=== PATIENT | female | born 1965 | race Caucasian/White ===

== ENCOUNTER → 2016-09-21 | Outpatient (CLI) | payer OTHER ==
[~2016-09-21] MED LIST: ACETAMINOPHEN PO; ALDACTONE100 MG PO; ALDACTONE25 MG PO; AMITRYPTYLINE PO; ANIMAL SHAPES1 EAC2 PO; ATENOLOL PO; ATENOLOL-CHLOR1 EACH; AUGMENTIN875 M1 PO; CELEXA PO; CELEXA20 M1 PO; CIPRO PO; COLACE PO; DESYREL100 MG PO; EFFEXOR PO; EFFEXOR-XR75 MG PO; EFFEXOR50 MG PO; EFFEXOR75 M3 PO; FLAGYL250 M1 PO; FLEXERIL10 MG PO; FOLIC ACID1 MG PO; GABAPENTIN400 M2 PO; GUAIFENESIN600 M1; HCTZ PO; HYDROCHLOROTHIA25 MG PO; HYDROCODON-ACE1 EAC7; IBUPROFEN800 MG PO; K-DUR20 ME1 PO; K-DUR20 ME2 PO; KEFLEX500 MG PO; LACTULOSE10 GM/15 M PO; LACTULOSE20 GM/30 M PO; LASIX PO; LASIX20 MG PO; LIBRIUM PO; LIBRIUM25 M1 PO; LISINOPRIL PO; LISINOPRIL20 MG PO; MULTI VITAMIN1 EACH PO; NAPROSYN500 MG PO; NEURONTIN PO; ONE TABLET DAIL1 TA2 PO; PANTOPRAZOLE SO40 MG PO; PATIENT'S PHARMACY; PAXIL PO; PHENERGAN25 M1 PO; PROTONIX PO; PROZAC PO; QUETIAPINE FUM100 MG PO; SEROQUEL PO; SEROQUEL300 MG PO; SEROQUEL50 MG PO; SPIRONOLACTONE50 MG PO; THERA-M CAPLET1 EAC1 PO; THIAMINE HCL100 M1 PO; THIAMINE HCL100 M2 PO; THIAMINE HCL100 MG PO; TRAMADOL HCL50 M1 PO; TRAZODONE HCL100 MG PO; TYLOX 5/500 CAP1 CAP PO; ULTRAM PO; VIGAMOX3 M2 OP; ZESTRIL40 MG PO; ZITHROMAX PO; ZOFRAN PO; ZOFRAN8 MG PO; ZOLOFT PO
--- NOTE | ~2016-09-21 | XA170 ---
[facility] A Service of [facility] & [facility] RADIOLOGY TEXT RESULTS PATIENT: TEO WEN LOCATION: [facility] : [birth year] UNIT #: [id number] AGE: [address]: MARY ALBERTS SEX: F ORDER DR: [id number] [facility] [address] [place], [place] [address] [id number] O MR#: [id number] Acc #: [id number] NAME: TEO WEN : 1965 SEX: F STUDY DATE/TIME: 09/21/2016 11:41 UNIT: [facility] ROOM: STUDY DESCRIPTION: XA Paracentesis W Image Attending Physician: Mary Alberts Ordering Physician: Physician Non-Staff Primary Care Physician: Generic Doctor Not In System MEDICAL IMAGING REPORT This report is preliminary unless electronic signature is present EXAM Ultrasound-guided paracentesis, 09/21/2016 HISTORY Recurrent ascites. PROCEDURE Informed consent was obtained and a skin site was selected with ultrasound guidance and marked and after sterile preparation and draping with local anesthesia, paracentesis was performed with the Yeuh needle catheter and 3 liters of fluid removed. There were no complications. IMPRESSION Successful ultrasound-guided right lower quadrant paracentesis with removal of 3 L of fluid without complication. Dictated by... Farzad Rees M.D. THIS IS AN ELECTRONICALLY VERIFIED REPORT Farzad Rees M.D. at 09/22/2016 11:48 AM PATRICIA/mendez TD: 09/22/2016 05:46 JOB #: [id number] MEDICAL IMAGING REPORT COPY
[2016-09-21 11:05] LABS: HEMATOCRIT 34.6 % (35.0-45.0); HEMOGLOBIN 11.5 gm/dL (12.0-16.0); MEAN CELL VOLUME 96.7 FL (83-96); MEAN CORPUSCULAR HEMOGLOBIN 32.1 PG (28-34); MEAN CORPUSCULAR HGB CONC 33.2 g/dL (30-36); MEAN PLATELET VOLUME 9.5 FL (6.5-11.5); RED BLOOD COUNT 3.58 X10e (3.90-5.30); RED CELL DISTRIBUTION WIDTH 16.9 % (11.0-15.5); WHITE BLOOD COUNT 3.3 X10e3 (4.0-10.5)
[2016-09-21 11:24] LABS: INR 1.3; PARTIAL THROMBOPLASTIN TIME 29.9 SECONDS (23.5-31.3); PROTHROMBIN TIME (PATIENT) 13.9 SECONDS (9.6-11.5)
== END | disposition home or self-care (01) ==
LOC: CIVR 10:24
PROVIDERS: Registered Nurse Critical Care Medicine
PROC: 0W9G3ZX Drainage of Peritoneal Cavity, Percutaneous Approach, Diagnostic (ICD-10-PCS; principal; 2016-09-21)
DX: K70.31 Alcoholic cirrhosis of liver with ascites (principal); F41.9 Anxiety disorder, unspecified; D50.9 Iron deficiency anemia, unspecified; T14.91 Suicide attempt; E87.6 Hypokalemia; Z88.1 Allergy status to other antibiotic agents
CPT/HCPCS: 36415; 85027; 85610; 85730

== ENCOUNTER 2016-12-07 15:48 | Emergency (ER) | payer OTHER ==
[~2016-12-07 15:48] MED LIST changes: -EFFEXOR PO; -EFFEXOR75 M3 PO; -LACTULOSE10 GM/15 M PO; -LACTULOSE20 GM/30 M PO; -PATIENT'S PHARMACY; -QUETIAPINE FUM100 MG PO; -SPIRONOLACTONE50 MG PO; -THERA-M CAPLET1 EAC1 PO; -ZOFRAN PO; -ZOFRAN8 MG PO; -ZOLOFT PO
[2016-12-07 19:01] LABS: BASOPHIL% 0.9 % (0-2.5); EOSINOPHIL# 0.1 X10e3 (0-0.7); EOSINOPHIL% 2.1 % (0.0-7.0); HEMATOCRIT 34.4 % (35.0-45.0); HEMOGLOBIN 11.6 gm/dL (12.0-16.0); LYMPHOCYTE# 0.9 X10e3 (1.0-3.5); LYMPHOCYTE% 31.2 % (17.0-45.0); MEAN CELL VOLUME 97.3 FL (83-96); MEAN CORPUSCULAR HEMOGLOBIN 32.9 PG (28-34); MEAN CORPUSCULAR HGB CONC 33.8 g/dL (30-36); MEAN PLATELET VOLUME 8.9 FL (6.5-11.5); MONOCYTE# 0.3 X10e3 (0-1.0); MONOCYTE% 10.3 % (3.0-12.0); NEUTROPHIL# 1.6 X10e3 (1.5-7.1); NEUTROPHIL% 55.5 % (40-75); PLATELET COUNT 69 X10e3 (140-420); RED BLOOD COUNT 3.54 X10e (3.90-5.30); RED CELL DISTRIBUTION WIDTH 15.9 % (11.0-15.5); WHITE BLOOD COUNT 2.9 X10e3 (4.0-10.5)
[2016-12-07 19:16] LABS: DIFF IND YES
[2016-12-07 19:28] LABS: ALBUMIN SERUM 3.1 g/dL (3.5-5.0); BILIRUBIN, DIRECT 0.6 mg/dL (0.0-0.2); BILIRUBIN,INDIRECT 1.3 mg/dL (0.0-0.9); BILIRUBIN,TOTAL 1.9 mg/dL (0.2-2.0); CALCIUM SERUM 8.7 mg/dL (8.4-10.2); CREATININE SERUM 0.5 mg/dL (0.6-1.4); GLOM FILT RATE Estimated 113.7 mL/min (>60); POTASSIUM 3.5 mmol/L (3.5-5.1); PROTEIN TOTAL SERUM 7.1 g/dL (6.0-8.3)
[2016-12-07 19:43] LABS: ANISOCYTOSIS MOD; PLATELET ESTIMATE DECREASED (NORMAL); POIKILOCYTOSIS SL
[2016-12-07 19:56] LABS: URINE SOURCE CLEAN CATCH
[2016-12-07 20:04] LABS: URINE APPEARANCE CLOUDY; URINE BLOOD NEG (NEG); URINE COLOR ORANGE; URINE GLUCOSE NEG (NEG); URINE KETONE TRACE (NEG); URINE LEUKOCYTE ESTERASE 1+ (NEG); URINE NITRATE POS (NEG); URINE PROTEIN TRACE (NEG); URINE SPECIFIC GRAVITY 1.033 (1.003-1.035)
[2016-12-07 20:07] LABS: CULTURE INDICATED? YES; URINE BACTERIA AUWI 1+ (NEGATIVE); URINE SQUAMOUS EPITHELIAL CELL FEW /[HPF]
[2016-12-07 20:13] LABS: URINE BILIRUBIN POS (NEG)
[2016-12-07 20:15] LABS: URINE ICTOTEST POS (NEG)
== END 2016-12-07 22:37 | disposition home or self-care (01) ==
LOC: CED 15:48
PROVIDERS: Emergency Medicine
DX: R10.84 Generalized abdominal pain (principal); R11.2 Nausea with vomiting, unspecified; D61.818 Other pancytopenia; K72.90 Hepatic failure, unspecified without coma; F41.9 Anxiety disorder, unspecified; F32.9 Major depressive disorder, single episode, unspecified; I10 Essential (primary) hypertension; Z88.2 Allergy status to sulfonamides
CPT/HCPCS: 36415; 80048; 80076; 81003; 83690; 84703; 85025; 87086; 96374; 96375; 99284; G0480; J2270; J2405

== ENCOUNTER → 2016-12-07 | Outpatient (CLI) | payer OTHER ==
--- NOTE | ~2016-12-07 | XA170 ---
[facility] A Service of [facility] RADIOLOGY TEXT RESULTS PATIENT: TEO WEN LOCATION: [facility] : 69 UNIT #: [id number] AGE: [address]: PAUL PANDA APRN SEX: F ORDER DR: [id number] [address] [address] [id number] O MR#: [id number] Acc #: [id number] NAME: TEO WEN : 1965 SEX: F STUDY DATE/TIME: 12/07/2016 14:31 UNIT: [facility] ROOM: STUDY DESCRIPTION: XA Paracentesis W Image Attending Physician: Paul Panda Referring Physician: Paul Panda Ordering Physician: Physician Non-Staff Primary Care Physician: Generic Doctor Not In System MEDICAL IMAGING REPORT This report is preliminary unless electronic signature is present EXAM Ultrasound-guided paracentesis INDICATIONS Ascites. Risks, benefits and alternatives of the procedure were discussed with the patient and informed consent was obtained. In the procedure room, a time-out was performed confirming correct patient and procedure. All elements of maximum sterile-barrier technique utilized according to guidelines appropriate for the procedure. TECHNIQUE/FINDINGS Ultrasound of the right lower quadrant was performed. The overlying skin was prepped and draped in the usual sterile fashion and 1% lidocaine utilized to anesthetize the skin and underlying subcutaneous tissues. Next, under ultrasound guidance, a 5-Slovenian Yueh catheter was inserted into the right lower quadrant and 6200 mL of fluid was removed. Needle was removed and a sterile dressing was applied. No immediate complications. IMPRESSION Successful ultrasound-guided paracentesis. Dictated by... Nahum Marino M.D. THIS IS AN ELECTRONICALLY VERIFIED REPORT Nahum Marino M.D. at 12/08/2016 7:46 AM PAPI/audelia TD: 12/07/2016 22:30 [facility] A Service of [facility] RADIOLOGY TEXT RESULTS PATIENT: TEO WEN LOCATION: [facility] #: [id number] : [birth year] UNIT #: [id number] AGE: [address]: PAUL PANDA APRN SEX: F ORDER DR: JOB #: [id number] MEDICAL IMAGING REPORT Page 1 of 1 COPY
[2016-12-07 14:06] LABS: HEMOGLOBIN 11.7 gm/dL (12.0-16.0); MEAN CELL VOLUME 96.7 FL (83-96); MEAN CORPUSCULAR HEMOGLOBIN 32.4 PG (28-34); MEAN CORPUSCULAR HGB CONC 33.5 g/dL (30-36); MEAN PLATELET VOLUME 8.8 FL (6.5-11.5); RED BLOOD COUNT 3.62 X10e (3.90-5.30); RED CELL DISTRIBUTION WIDTH 15.6 % (11.0-15.5); WHITE BLOOD COUNT 2.7 X10e3 (4.0-10.5)
[2016-12-07 14:43] LABS: INR 1.4; PARTIAL THROMBOPLASTIN TIME 31.3 SECONDS (23.5-31.3); PROTHROMBIN TIME (PATIENT) 14.7 SECONDS (9.6-11.5)
== END | disposition home or self-care (01) ==
LOC: CIVR 13:17
PROVIDERS: Nurse Practitioner Family
PROC: 0W9G3ZX Drainage of Peritoneal Cavity, Percutaneous Approach, Diagnostic (ICD-10-PCS; principal; 2016-12-07)
DX: K70.31 Alcoholic cirrhosis of liver with ascites (principal); F41.9 Anxiety disorder, unspecified; D50.9 Iron deficiency anemia, unspecified; T14.91 Suicide attempt; E87.6 Hypokalemia; Z88.1 Allergy status to other antibiotic agents
CPT/HCPCS: 36415; 85027; 85610; 85730

== ENCOUNTER → 2017-01-28 | Outpatient (CLI) | payer OTHER ==
[~2017-01-28] MED LIST changes: +EFFEXOR PO; +EFFEXOR75 M3 PO; +LACTULOSE10 GM/15 M PO; +LACTULOSE20 GM/30 M PO; +PATIENT'S PHARMACY; +QUETIAPINE FUM100 MG PO; +SPIRONOLACTONE50 MG PO; +THERA-M CAPLET1 EAC1 PO; +ZOFRAN PO; +ZOFRAN8 MG PO; +ZOLOFT PO
--- NOTE | ~2017-01-28 | XA170 ---
[facility] A Service of [facility] & [facility] RADIOLOGY TEXT RESULTS PATIENT: TEO WEN LOCATION: [facility] : [birth year] UNIT #: [id number] AGE: [address]: FRANCHESCA KEATING SEX: F ORDER DR: [id number] [facility] [address] [place], [place] [address] [id number] O MR#: [id number] Acc #: [id number] NAME: TEO WEN : 1965 SEX: F STUDY DATE/TIME: 01/28/2017 14:38 UNIT: [facility] ROOM: STUDY DESCRIPTION: XA Paracentesis W Image Attending Physician: Franchesca Keating Referring Physician: Franchesca Keating Ordering Physician: Sanna Not Listed Primary Care Physician: No Primary Care Physician MEDICAL IMAGING REPORT This report is preliminary unless electronic signature is present EXAM Ultrasound-guided paracentesis. HISTORY Recurrent ascites. PROCEDURE Informed consent was obtained. The skin site was selected with ultrasound guidance, sterilely prepped and draped and locally anesthetized, and a [employer] needle catheter was used for paracentesis. 15.5 liters of fluid removed. There were no complications, and the patient tolerated the procedure well. IMPRESSION Successful ultrasound-guided paracentesis with removal of 15.5 liters of fluid without complications. Dictated by... Farzad Rees M.D. THIS IS AN ELECTRONICALLY VERIFIED REPORT Farzad Rees M.D. at 02/02/2017 10:05 AM PATRICIA/lincoln TD: 01/28/2017 19:10 JOB #: [id number] MEDICAL IMAGING REPORT Page 1 of 1 COPY
[2017-01-28 14:14] LABS: HEMATOCRIT 37.3 % (35.0-45.0); HEMOGLOBIN 12.6 gm/dL (12.0-16.0); MEAN CORPUSCULAR HEMOGLOBIN 33.1 PG (28-34); MEAN CORPUSCULAR HGB CONC 33.7 g/dL (30-36); MEAN PLATELET VOLUME 8.4 FL (6.5-11.5); RED BLOOD COUNT 3.81 X10e (3.90-5.30); RED CELL DISTRIBUTION WIDTH 15.7 % (11.0-15.5); WHITE BLOOD COUNT 5.7 X10e3 (4.0-10.5)
[2017-01-28 14:30] LABS: INR 1.4; PARTIAL THROMBOPLASTIN TIME 30.8 SECONDS (23.5-31.3)
== END | disposition home or self-care (01) ==
LOC: CIVR 13:00
PROVIDERS: Nurse Practitioner Family
DX: K70.31 Alcoholic cirrhosis of liver with ascites (principal); F41.9 Anxiety disorder, unspecified; D50.9 Iron deficiency anemia, unspecified; E87.6 Hypokalemia; F33.1 Major depressive disorder, recurrent, moderate; Z91.5 Personal history of self-harm; Z88.1 Allergy status to other antibiotic agents
CPT/HCPCS: 85027; 85610; 85730

== ENCOUNTER 2017-02-13 14:10 | Inpatient (IN) | payer OTHER ==
[~2017-02-13] VITALS: Ht 167.6 cm; Wt 95.5 kg
--- NOTE | ~2017-02-13 | XA170 ---
[facility] A Service of [facility] RADIOLOGY TEXT RESULTS PATIENT: TEO WEN LOCATION: A : 69 UNIT #: [id number] AGE: [address]: Velia Bailey MD SEX: F ORDER DR: [id number] [place] [id number] [facility]. [place], [place] [address] [id number] I MR#: [id number] Acc #: [id number] NAME: TEO WEN : 1965 SEX: F STUDY DATE/TIME: 02/15/2017 8:35 UNIT: A ROOM: [facility] STUDY DESCRIPTION: XA Paracentesis W Image Attending Physician: Velia Bailey M.D. Ordering Physician: Drew Villalobos M.D. Primary Care Physician: No Primary Care Physician MEDICAL IMAGING REPORT This report is preliminary unless electronic signature is present EXAM Ultrasound-guided paracentesis. INDICATIONS Recurrent ascites. TECHNIQUE Risks, benefits, and alternatives to the procedure were discussed with the patient, and informed consent was obtained. In the procedure room, a time-out was performed confirming correct patient and procedure. All elements of maximum sterile barrier technique were utilized, according to guidelines appropriate for the procedure. Ultrasound of the right side of the abdomen was performed, demonstrating a large amount of ascites. The overlying skin was prepped and draped in the usual sterile fashion. 1% lidocaine was utilized to anesthetize the skin and underlying subcutaneous tissues. Next, under ultrasound guidance, a 5-Gambian Yueh catheter was inserted into the peritoneal space of the right lower quadrant, and 11,600 mL of fluid was removed. Sample was sent to the lab. The needle was removed and a sterile dressing was applied. No immediate complications. IMPRESSION Technically successful ultrasound-guided paracentesis. Dictated by... Nahum Marino M.D. THIS IS AN ELECTRONICALLY VERIFIED REPORT Nahum Marino M.D. at 02/16/2017 10:28 AM PAPI/lincoln [facility] A Service [facility] RADIOLOGY TEXT RESULTS PATIENT: TEO WEN [id number] : [birth year] UNIT #: [id number] AGE: [address]: Velia Bailey MD SEX: F ORDER DR: TD: 02/15/2017 18:38 JOB #: [id number] MEDICAL IMAGING REPORT Page 1 of 1 COPY
--- NOTE | ~2017-02-13 | US8 ---
[facility] A Service of [facility] & [facility] RADIOLOGY TEXT RESULTS PATIENT: TEO WEN LOCATION: [facility] 231-01 : [birth year] UNIT #: [id number] AGE: [address]: Velia Bailey MD SEX: F ORDER DR: [id number] [facility] [address] [place], [place] [address] [id number] I MR#: [id number] Acc #: [id number] NAME: TEO WEN : 1965 SEX: F STUDY DATE/TIME: 02/16/2017 7:57 UNIT: A ROOM: [facility] STUDY DESCRIPTION: US Abdominal Wall/Quadrant Attending Physician: Velia Bailey M.D. Ordering Physician: Velia Bailey M.D. Primary Care Physician: Primary Care Physician No MEDICAL IMAGING REPORT This report is preliminary unless electronic signature is present EXAM Abdomen wall quadrant ultrasound, 02/16/2017 HISTORY Distended abdomen and abdominal pain for 2 weeks. Hepatic cirrhosis. Evaluate for ascites after paracentesis yesterday. FINDINGS Ultrasound of the abdomen reveals a moderate to large amount of ascites within the peritoneal cavity. IMPRESSION Moderate to large amount of ascites within the peritoneal cavity. Dictated by... Sy Panda M.D. THIS IS AN ELECTRONICALLY VERIFIED REPORT Sy Panda M.D. at 02/17/2017 7:32 AM DIONTE/shamika TD: 02/16/2017 11:31 JOB #: [id number] MEDICAL IMAGING REPORT Page 1 of 1 COPY
--- NOTE | ~2017-02-13 | CO ---
Unit #: [id number] #: [id number] Patient: TEO MORA [id number] [address] [place], [place] [address] [id number] I MR#: [id number] NAME: TEO MORA ROOM: 231 Age: 51 Sex: F Admission Date: 02/13/2017 : 1965 Attending Physician: Velia Bailey M.D. Primary Care Physician: No Primary Care Physician Consultation Date: 02/15/2017 CONSULTATION REPORT REASON FOR CONSULTATION Large dense ascites. HISTORY Ms. Mora is a 51-year-old white female patient with a longstanding history of alcoholic cirrhosis, portal hypertension, ascites with continued alcohol abuse. Unfortunately she continues to abuse alcohol. She ended up going with massive ascites and generalized anasarca. There is no history of lower GI bleed, nor any history suggestive of mental confusion or hepatic encephalopathy. Unfortunately she has very poor social circumstances. tells me that she was drinking and she has been drinking about a pint of vodka every day before being brought to the hospital. PAST MEDICAL HISTORY Significant for cirrhosis and alcohol abuse, along with ascites, pancytopenia, depression, anxiety. Multiple admissions in the past because of history of DTs from alcoholic withdrawal and cellulitis. Previous surgeries include a tubal ligation and oophorectomy. Patient had a colonoscopy on 03/2015 and did not have any polyps or cancer at that time. SOCIAL HISTORY She lives with her and drinks vodka every day and does not smoke or use recreational drugs. FAMILY HISTORY Father having cirrhosis from alcohol. HOME MEDICATIONS These include spironolactone 50 mg p.o. daily; Lasix 20 mg p.o. daily; quetiapine 1 mg h.s.; Zofran 8 mg q.8 hours p.r.n.; lactulose 20 g p.o. 4 times a day; as well as Effexor XR 75 mg p.o. daily. ALLERGIES Patient is allergic to sulfonamides. REVIEW OF SYSTEMS A detailed review of organ system does not reveal any recent weight loss. No history of fevers, chills or rigors. No headaches, seizures, chest pain or syncope. No history of cough or expectoration, or hemoptysis. No history of dysuria, hematuria or pyuria. No history of focal seizures or extremity weakness. No history of upper GI bleed. PHYSICAL EXAMINATION Unit #: [id number] #: [id number] Patient: TEO MORA GENERAL: She is awake, alert and oriented, and has massive ascites, which is quite evident. VITAL SIGNS: Her temperature is 97.8, pulse 72 per minute and regular, respiratory rate is 18, and blood pressure is 130/84. She weighs 210 pounds. Her baseline weight in the past has been (1) in the past. HEENT: She has mild pallor, there being no icterus, lymphadenopathy, grade 4 pitting peripheral edema. CARDIOVASCULAR: Normal heart sounds. No murmurs on auscultation. LUNGS: Reveals normal breath sounds with diminished air entry at the lung bases. ABDOMEN: Abdominal palpation. Has been eating less because of massively enlarged abdomen with intense ascites. Any kind of organomegaly is impossible to feel. Patient also has a ventral hernia from ascites. DIAGNOSTIC STUDIES LABORATORY EVALUATION: Coagulopathy with INR of 1.4 and pancytopenia with platelet count of 62. White count is 2.2 thousand, and MCV is 103. All consistent with alcohol abuse. Serum chemistry shows normal BUN and creatinine and electrolytes; however, patient's albumin is 2.7. AST, ALT and alk phos are 59, 23, and 97 respectively. CLINICAL IMPRESSION Patient with alcohol cirrhosis, large dense ascites, severe pancytopenia, coagulopathy, hypoalbuminemia, and continued alcohol abuse. The single most important determinate of her outcome is total sobriety, which is a tall order. In the meantime suggest we treat with a dose of Lasix 40 mg daily, Aldactone 200 mg p.o. daily. Also patient must stick to 2 g sodium high protein diet. Unfortunately she has been continuing to use a lot of salt home. Will also consider repeat paracentesis and Dr. Bailey has already ordered that. Thank you very much for asking me to see Ms. Mora. I appreciate the consult. Dictated by... Andres Phillips TD: 02/17/2017 09:20 JOB #: [id number] CONSULTATION REPORT Page 1 of 1 X Drew Villalobos MD CONSULTATION REPORT
--- NOTE | ~2017-02-13 | XA170 ---
[facility] A Service of [facility] & [facility] RADIOLOGY TEXT RESULTS PATIENT: TEO WEN LOCATION: [facility]- : [birth year] UNIT #: [id number] AGE: [address]: Velia Bailey MD SEX: F ORDER DR: [id number] [facility] [address] [place], [place] [address] [id number] I MR#: [id number] Acc #: [id number] NAME: TEO WEN : 1965 SEX: F STUDY DATE/TIME: 02/16/2017 13:09 UNIT: C2A ROOM: [facility] STUDY DESCRIPTION: XA Paracentesis W Image Attending Physician: Velia Bailey M.D. Ordering Physician: Velia Bailey M.D. Primary Care Physician: Primary Care Physician No MEDICAL IMAGING REPORT This report is preliminary unless electronic signature is present EXAM Ultrasound-guided paracentesis INDICATION Ascites and cirrhosis. PROCEDURE There risks, benefits, and alternatives to the procedure were explained to the patient, and signed, informed consent was obtained. The patient was placed supine on her stretcher. Preliminary ultrasound of the abdomen was performed which demonstrated a large volume of ascites. This image was permanently saved. Overlying skin was marked. Patient was prepped and draped in the usual sterile fashion. Time-out was performed as protocol. Skin and subcutaneous tissues were anesthetized with buffered lidocaine. The [employer] catheter was advanced into the fluid with aspiration of serous material. Catheter was hooked to suction tubing. There was evacuation of a total of 7.3 L of serous material. Catheter was then removed and manual pressure was applied until hemostasis was obtained. IMPRESSION Technically successful ultrasound-guided paracentesis with evacuation of 7.3 L of serous material. Ultrasound was used during the procedure and permanent images were saved. Dictated by... Evelia Cisneros M.D. THIS IS AN ELECTRONICALLY VERIFIED REPORT Evelia Cisneros M.D. at 02/17/2017 4:48 PM JED/shamika TD: 02/17/2017 08:58 JOB #: [id number] [facility] A Service of [facility] & [facility] RADIOLOGY TEXT RESULTS PATIENT: TEO WEN [facility] [id number] : [birth year] UNIT #: [id number] AGE: [address]: Velia Bailey MD SEX: F ORDER DR: MEDICAL IMAGING REPORT Page 1 of 1 COPY
--- NOTE | ~2017-02-13 | HP ---
Unit #: [id number] #: [id number] Patient: TEO WEN [id number] [address] [address] [id number] MR#: [id number] NAME: TEO WEN ROOM: Age: 51 Sex: F Admission Date: 02/13/2017 : 1965 Attending Physician: Ceasar Mac M.D. HISTORY AND PHYSICAL CHIEF COMPLAINT Abdominal pain. HISTORY OF PRESENT ILLNESS The patient is a 51-year-old female with a past medical history of cirrhosis secondary to alcohol abuse with recurrent ascites, thrombocytopenia, and continued alcohol abuse, who presented to the emergency department for evaluation of the above. The patient states that she has had a three to four-day history of increasing abdominal girth and pain. She has had decreased appetite and associated shortness of breath. She also reports loose stool. Additionally, she has had increasing lower extremity edema. She has been taking her medication as prescribed. She apparently had stopped taking lactulose for a couple of days but restarted it yesterday. In the emergency department, CT of the abdomen and pelvis was done and showed massive ascites. She was given a gram of Rocephin in the emergency department. She is being admitted to [facility] for evaluation and further treatment. PAST MEDICAL HISTORY 1. Admission to [facility] August 15 through August 24, 2016, for cirrhosis. 2. Cirrhosis secondary to alcohol abuse with recurrent ascites and pancytopenia. 3. Depression and anxiety. PAST SURGICAL HISTORY 1. Tubal ligation. 2. Oophorectomy. 3. Colonoscopy. SOCIAL HISTORY The patient lives with her . She drinks a fifth daily. Her last drink was four days ago and consisted of a pint of alcohol, although her blood alcohol level today is 60. Additionally, the patient has paperwork from [employer] stating that she is a Do Not Resuscitate. The patient and her state that she is a Full Code. She denies tobacco or illicit drug use. FAMILY HISTORY Notable for her dad having cirrhosis. Unit #: [id number] #: [id number] Patient: TEO WEN ALLERGIES Sulfa. HOME MEDICATIONS 1. Spironolactone 50 mg daily. 2. Lasix 20 mg daily. 3. Quetiapine 100 mg at bedtime. 4. Zofran 8 mg q.8 hours p.r.n. 5. Lactulose 20 g 4 times daily. 6. Effexor 75 mg daily. REVIEW OF SYSTEMS A complete review of systems is negative except as indicated in the History of Present Illness. The patient's last paracentesis was January 28, 2017, with removal of 15.5 liters at that time. PHYSICAL EXAMINATION VITAL SIGNS: Temperature is 98.4, pulse 86, respirations 20, blood pressure 123/84, and oxygen saturation is 97% on room air. GENERAL: Patient is a female who is awake, alert, and in no acute distress. HEENT: Head is atraumatic. Mucous membranes are dry. NECK: Supple. Trachea is midline. CARDIOVASCULAR: Regular rate and rhythm. LUNGS: Decreased breath sounds at the bases. Breathing is mildly labored with conversation. ABDOMEN: Markedly distended. She is tender to palpation throughout. Rectal exam was Hemoccult negative per ER documentation. EXTREMITIES: With 1+ pitting edema. NEUROLOGIC: Patient is awake and alert. She is oriented to person, place, and year. She follows commands. PSYCHIATRIC: Mood and affect are normal. Patient is cooperative. SKIN: Skin of examined areas is warm and dry. DIAGNOSTIC STUDIES LABORATORY: BNP is 133. Urinalysis notable for trace leukocyte esterase and trace protein. INR is 1.3. Comprehensive metabolic panel notable for glucose of 155, AST 59, alkaline phosphatase 97, total bilirubin 3.2, and albumin is 3.2. Lipase is 39. Alcohol level is 60. Complete blood count notable for platelets of 90,000. IMAGING: CT of the abdomen and pelvis shows massive ascites with mild mural prominence involving the ascending and transverse colon concerning for possible congestion versus infection. Uncomplicated cholelithiasis. Chest x-ray shows left base atelectasis. ASSESSMENT The patient is a 51-year-old female with: 1. Ascites, recurrent, secondary to #2. 2. Cirrhosis secondary to alcohol abuse with continued alcohol abuse. 3. Thrombocytopenia. The patient's platelet count has been as low as 41 on August 17, 2016. Platelets are 90 today. 4. Alcohol abuse with last drink reportedly four days ago, but blood alcohol level is 60. 5. Depression and anxiety. 6. Uncomplicated cholelithiasis. PLAN Unit #: [id number] #: [id number] Patient: TEO WEN 1. Admit for observation to intermediate level. 2. Advance diet to clear liquids if passes bedside swallow. 3. Consult Interventional Radiology for paracentesis. 4. Albumin for large volume paracentesis. 5. Ascitic fluid studies including cell count and differential, culture and sensitivity. 6. Rocephin 1 gram IV daily pending further workup. 7. Thiamine, multivitamin, and folic acid. 8. CIWA scoring. 9. Check ammonia level. 10. Repeat labs in the morning. 11. Additional workup and consultants based on above. 12. Regarding code status, the patient is a Full Code. 1. Dictated by Kenia Fajardo M.D. AW/stefanie TD: 02/13/2017 21:01 JOB #: [id number] HISTORY AND PHYSICAL Page 1 of 1 X Kenia Fajardo MD X HISTORY AND PHYSICAL
--- NOTE | ~2017-02-13 | DS ---
Unit #: [id number] #: [id number] Patient: TEO WEN [id number] [address] [place], [place] [address] [id number] I MR#: [id number] NAME: TEO WEN ROOM: 231 Age: 51 Sex: F Admission Date: 02/13/2017 : 1965 Discharge Date: 02/17/2017 Attending Physician: Velia Bailey M.D. Primary Care Physician: No Primary Care Physician DISCHARGE SUMMARY REASON FOR ADMISSION Ascites, intractable pain, cirrhosis. The patient is a 51-year-old female, originally admitted secondary to increased abdominal pain and/or discomfort. She was noted to have massive ascites seen on day of admission. She underwent a large volume paracentesis by IR on February 15, 2017, with approximately 12 L removed. Consultation had also been placed by Dr. Villalobos of [facility] in regards to the patient's history of cirrhosis as well as alcohol abuse. He did recommend to increase Lasix to 40 mg p.o. q. a.m. as well as Aldactone from 50 mg to 200 mg p.o. q. h.s. The patient underwent a repeat ultrasound on the morning of February 16, 2017. It did show ascites/as well as increased fluid once again. Patient underwent repeat paracentesis yesterday with approximately 7 L of fluid removed by IR. At this point in time, the patient is stable for discharged home. She is routinely followed by hospice services while at home. Her life expectancy is less than six months. This has been compounded by the fact that she continues to consume alcohol on a daily basis as well as has been noncompliant with her routine medications. I did discuss with patient in consideration of pain management that perhaps inpatient hospice may be something for her to consider. At the present time, she refuses and wishes to go home. She did ask me for pain medications prior to discharge. However, after review and discussion with hospice services, apparently her had been taking some of her medications and patient had been having her medications mismanaged while at home. therefore, no narcotic medications will be given to patient at time of discharge. At this point in time, the patient will be discharged home with the understanding that hospice services will continue to follow at the time of discharge. She likely will require weekly paracentesis which may be set up as an outpatient through either hospice services or through her primary care physician. 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 FINAL DISCHARGE DIAGNOSES 1. Ascites, status post paracentesis x2 this hospital admission, with a total of approximately 20 liters of fluid removed. 2. Cirrhosis, end stage, secondary to alcohol abuse in the past. Unit #: [id number] #: [id number] Patient: TEO WEN 3. Ongoing alcohol abuse with little insight into disease process. 4. Chronic pancytopenia. 5. Depression. 6. Anxiety. 7. Malnutrition secondary to alcohol abuse. Baseline hemoglobin at time of discharge approximately 10-11. Baseline white count at time of discharge approximately 2. Baseline platelets at time of discharge approximately 60. FINAL DISCHARGE MEDICATIONS 1. Lactulose 20 g p.o. q.6 scheduled. 2. Effexor XR 75 mg p.o. q. a.m. 3. Zofran 8 mg p.o. q.8 p.r.n. 4. Seroquel 100 mg p.o. q. h.s. 5. Lasix 40 mg p.o. q. a.m. 6. Multivitamin daily. 7. Aldactone 200 mg p.o. q. h.s. 8. Thiamine 100 mg p.o. daily. DISCHARGE CONDITION Stable. DISCHARGE DISPOSITION Home. Please note - recommendation has been made to patient for inpatient hospice to which she has refused. Chance of readmission for this admission significantly elevated. PROGNOSIS Poor. Dictated by... Velia Bailey M.D. EFRAIN/yudelka TD: 02/17/2017 11:29 JOB #: [id number] DISCHARGE SUMMARY Page 1 of 1 X Velia Bailey MD X DISCHARGE SUMMARY
--- NOTE | ~2017-02-13 | CT2 ---
[facility] A Service of [facility] RADIOLOGY TEXT RESULTS PATIENT: TEO WEN LOCATION: [facility] 549- : 69 UNIT #: [id number] AGE: [address]: Velia Bailey MD SEX: F ORDER DR: [id number] [facility] [address] [place], [place] [address] [id number] I MR#: [id number] Acc #: [id number] NAME: TEO WEN : 1965 SEX: F STUDY DATE/TIME: 02/13/2017 17:10 UNIT: B ROOM: [facility] STUDY DESCRIPTION: CT Abd and Pelv W Cont Attending Physician: Kenia Fajardo M.D. Ordering Physician: Ceasar Mac M.D. Primary Care Physician: Primary Care Physician No MEDICAL IMAGING REPORT This report is preliminary unless electronic signature is present EXAM CT abdomen and pelvis with contrast. HISTORY Right side abdomen pain today. Cirrhosis, hypertension. TECHNIQUE CT abdomen and pelvis performed with 100 mL Isovue-370 intravenously. Patient also received enteric contrast. Comparison 08/15/2016. This CT exam was performed with one or more of the following radiation dose reduction techniques: automatic exposure control, adjustment of mA and/or kV according to patient size, and iterative reconstruction. FINDINGS Dependent atelectasis at the lung bases. Densely calcified granuloma at the right lung base. Inferior heart and pericardium notable for mild cardiac enlargement. There are aortic valvular and coronary arterial calcifications. Cirrhotic morphology of the liver. No clearly suspicious focal hepatic abnormality. Uncomplicated cholelithiasis. Spleen is enlarged measuring approximately 16.8 cm in craniocaudal extent. No change from prior study. Calcified splenic granulomata. Pancreas, left adrenal gland unremarkable. Indeterminate right adrenal nodule measuring about 2.1 cm in diameter, unchanged. Kidneys unremarkable. CT PELVIS: No inguinal adenopathy. The urinary bladder is unremarkable. The uterus and adnexal regions show no acute abnormality. Massive ascites. Greater than on prior examination. Extensive body wall edema most pronounced low abdomen/pelvis and extending into the visualized upper thighs also more pronounced than on prior study. The distal esophagus and stomach notable for presence of esophageal varices. The small bowel is unremarkable. The appendix is not clearly identified. There is no STS. [facility] A Service of [facility] RADIOLOGY TEXT RESULTS PATIENT: TEO WEN LOCATION: [facility] 549-01 : [birth year] UNIT #: [id number] AGE: [address]: Velia Bailey MD SEX: F ORDER DR: compelling evidence of appendicitis. The colon is difficult to assess given the extensive ascites. The colon shows a suggestion of wall thickening in the ascending and proximal transverse colon. This could be a reflection of venous congestion given portal hypertension. Correlate with any clinical concern for infectious or inflammatory colitis. There is no free air. No colonic dilatation. Recanalization of the periumbilical veins. Caput medusae. Esophageal varices. Atherosclerotic arterial calcifications. No aneurysm. Bony structures show no acute abnormality. IMPRESSION 1. Massive ascites. I believe this has increased in the interval from 08/15/2016. In addition there is extensive body wall edema most pronounced in the posterolateral body wall bilaterally and in the inferior anterior abdominal and pelvic body wall extending into the thighs bilaterally. Body wall edema significantly increased in interval from prior study. 2. Cirrhotic morphology of the liver with evidence of portal hypertension including esophageal varices, recanalization of the periumbilical veins, caput medusae, and stable splenomegaly with spleen measuring about 16.8 cm in craniocaudal extent. 3. Mild mural prominence of the ascending and proximal transverse colon. No pathologic dilatation. No indication of focal mass lesion. The appearance is nonspecific and could be a reflection of venous congestion and edema secondary to portal hypertension. Alternatively, ascending colitis of infectious or inflammatory etiology could be considered. Correlate clinically. Remainder of colon unremarkable. Small bowel unremarkable. Appendix not clearly identified. 4. Cirrhotic morphology of liver without suspicious focal abnormality. 5. Uncomplicated cholelithiasis. 6. Atherosclerotic arterial calcifications in the coronary and systemic circulation. No aneurysm. 7. Dependent atelectasis at the bilateral lung bases. Dictated by... Ceasar Amaro M.D. THIS IS AN ELECTRONICALLY VERIFIED REPORT Ceasar Amaro M.D. at 02/14/2017 2:44 PM AUSTYN/mendez TD: 02/14/2017 04:05 JOB #: [id number] MEDICAL IMAGING REPORT Page 1 of 1 COPY
--- NOTE | ~2017-02-13 | CR72 ---
[facility] A Service of [facility] RADIOLOGY TEXT RESULTS PATIENT: TEO WEN LOCATION: [facility] : 69 UNIT #: [id number] AGE: [address]: Kenia Fajardo MD SEX: F ORDER DR: [id number] [facility] [address] [place], [place] [address] [id number] E MR#: [id number] Acc #: [id number] NAME: TEO WEN : 1965 SEX: F STUDY DATE/TIME: 02/13/2017 15:31 UNIT: [facility] [employer] ROOM: STUDY DESCRIPTION: CR Chest Single View Portable Attending Physician: Ceasar Mac M.D. Ordering Physician: Ceasar Mac M.D. Primary Care Physician: No Primary Care Physician MEDICAL IMAGING REPORT This report is preliminary unless electronic signature is present EXAM Frontal chest, 02/13/2017. INDICATIONS 51-year-old female with shortness of air chronically for a week. Hypertension. TECHNIQUE Frontal chest was performed. COMPARISON No comparisons. FINDINGS Cardiac silhouette borderline in size. Lung volumes are low. There was bronchovascular crowding versus mild central vascular congestion. Probable atelectasis in the right lung base. More confluent atelectasis or pneumonia in the left lung base with volume loss on the left and mild elevation of the left hemidiaphragm. There may be a trace amount of left-sided pleural fluid. No pneumothorax. There is old healed granulomatous disease. Follow up to clearing after appropriate therapy is recommended. IMPRESSION 1. Low lung volumes with bronchovascular crowding versus mild central vascular congestion. 2. Left basilar atelectasis or pneumonia. Probable trace to small effusion. Follow up to clearing recommended. 3. We have no comparisons for this patient in our system. STAT * RESULT [facility] A Service of [facility] RADIOLOGY TEXT RESULTS PATIENT: TEO WEN LOCATION: [facility] [id number] : [birth year] UNIT #: [id number] AGE: [address]: Kenia Fajardo MD SEX: F ORDER DR: Dictated by... Pavel Almeida M.D. THIS IS AN ELECTRONICALLY VERIFIED REPORT Pavel Almeida M.D. at 02/13/2017 10:07 PM ZONIA/lori TD: 02/13/2017 15:45 JOB #: [id number] MEDICAL IMAGING REPORT Page 1 of 1 COPY
[~2017-02-13 14:10] MED LIST changes: -EFFEXOR PO; -EFFEXOR75 M3 PO; -LACTULOSE10 GM/15 M PO; -LACTULOSE20 GM/30 M PO; -PATIENT'S PHARMACY; -QUETIAPINE FUM100 MG PO; -SPIRONOLACTONE50 MG PO; -THERA-M CAPLET1 EAC1 PO; -ZOFRAN PO; -ZOFRAN8 MG PO; -ZOLOFT PO
[2017-02-13 16:13] LABS: URINE SOURCE CLEAN CATCH
[2017-02-13 16:18] LABS: BASOPHIL% 0.9 % (0-2.5); EOSINOPHIL% 0.6 % (0.0-7.0); HEMATOCRIT 36.4 % (35.0-45.0); HEMOGLOBIN 12.4 gm/dL (12.0-16.0); LYMPHOCYTE# 0.7 X10e3 (1.0-3.5); LYMPHOCYTE% 13.9 % (17.0-45.0); MEAN CORPUSCULAR HEMOGLOBIN 34.8 PG (28-34); MEAN CORPUSCULAR HGB CONC 34.1 g/dL (30-36); MONOCYTE# 0.6 X10e3 (0-1.0); MONOCYTE% 11.2 % (3.0-12.0); NEUTROPHIL# 3.7 X10e3 (1.5-7.1); NEUTROPHIL% 73.4 % (40-75); RED BLOOD COUNT 3.57 X10e (3.90-5.30); RED CELL DISTRIBUTION WIDTH 18.6 % (11.0-15.5)
[2017-02-13 16:30] LABS: URINE APPEARANCE TURBID; URINE BLOOD NEG (NEG); URINE COLOR DK YELLOW; URINE GLUCOSE NEG (NEG); URINE KETONE TRACE (NEG); URINE LEUKOCYTE ESTERASE TRACE (NEG); URINE NITRATE NEG (NEG); URINE PROTEIN TRACE (NEG); URINE SPECIFIC GRAVITY 1.031 (1.003-1.035)
[2017-02-13 16:34] LABS: ALBUMIN SERUM 3.2 g/dL (3.5-5.0); BILIRUBIN,INDIRECT 2.2 mg/dL (0.0-0.9); BILIRUBIN,TOTAL 3.2 mg/dL (0.2-2.0); CALCIUM SERUM 8.7 mg/dL (8.4-10.2); GLOM FILT RATE Estimated 66.1 mL/min (>60); INR 1.3; POTASSIUM 4.8 mmol/L (3.5-5.1); PROTEIN TOTAL SERUM 7.7 g/dL (6.0-8.3); PROTHROMBIN TIME (PATIENT) 14.3 SECONDS (10.0-11.7)
[2017-02-13 16:35] LABS: DIFF IND NO; PLATELET COUNT 90 X10e3 (140-420)
[2017-02-13 16:36] LABS: URINE BILIRUBIN NEG (NEG)
[2017-02-13 17:01] LABS: CULTURE INDICATED? NO
[2017-02-13] MEDS ORDERED: SPIRONOLACTONE50 MG PO (18:33)
[2017-02-13] MEDS ORDERED: LASIX20 MG PO (18:33)
[2017-02-13] MEDS ORDERED: ZOFRAN8 MG PO (18:34)
[2017-02-13] MEDS ORDERED: QUETIAPINE FUM100 MG PO (18:34)
[2017-02-13] MEDS ORDERED: LACTULOSE20 GM/30 M PO (18:35)
[2017-02-13] MEDS ORDERED: EFFEXOR75 M3 PO (18:36)
[2017-02-14 06:43] LABS: BASOPHIL% 1.1 % (0-2.5); EOSINOPHIL# 0.1 X10e3 (0-0.7); EOSINOPHIL% 1.8 % (0.0-7.0); HEMATOCRIT 37.9 % (35.0-45.0); HEMOGLOBIN 12.9 gm/dL (12.0-16.0); LYMPHOCYTE# 0.9 X10e3 (1.0-3.5); LYMPHOCYTE% 19.6 % (17.0-45.0); MEAN CELL VOLUME 102.4 FL (83-96); MEAN CORPUSCULAR HEMOGLOBIN 34.9 PG (28-34); MEAN CORPUSCULAR HGB CONC 34.1 g/dL (30-36); MEAN PLATELET VOLUME 8.4 FL (6.5-11.5); MONOCYTE# 0.6 X10e3 (0-1.0); MONOCYTE% 12.9 % (3.0-12.0); NEUTROPHIL% 64.6 % (40-75); PLATELET COUNT 81 X10e3 (140-420); RED CELL DISTRIBUTION WIDTH 18.4 % (11.0-15.5); WHITE BLOOD COUNT 4.6 X10e3 (4.0-10.5)
[2017-02-14 06:45] LABS: DIFF IND NO
[2017-02-14 07:13] LABS: ALBUMIN SERUM 3.1 g/dL (3.5-5.0); BUN/CREATININE RATIO 8.88; CALCIUM SERUM 8.7 mg/dL (8.4-10.2); CREATININE SERUM 0.9 mg/dL (0.6-1.4); GLOM FILT RATE Estimated 75.1 mL/min (>60); POTASSIUM 4.1 mmol/L (3.5-5.1); PROTEIN TOTAL SERUM 7.7 g/dL (6.0-8.3)
[2017-02-15 06:02] LABS: INR 1.4; PROTHROMBIN TIME (PATIENT) 15.2 SECONDS (10.0-11.7)
[2017-02-15 06:05] LABS: HEMATOCRIT 32.7 % (35.0-45.0); HEMOGLOBIN 11.2 gm/dL (12.0-16.0); MEAN CELL VOLUME 103.7 FL (83-96); MEAN CORPUSCULAR HEMOGLOBIN 35.4 PG (28-34); MEAN CORPUSCULAR HGB CONC 34.1 g/dL (30-36); MEAN PLATELET VOLUME 8.4 FL (6.5-11.5); RED BLOOD COUNT 3.16 X10e (3.90-5.30); RED CELL DISTRIBUTION WIDTH 18.4 % (11.0-15.5)
[2017-02-15 06:14] LABS: WHITE BLOOD COUNT 2.2 X10e3 (4.0-10.5)
[2017-02-15 06:31] LABS: ALBUMIN SERUM 2.7 g/dL (3.5-5.0); BILIRUBIN,TOTAL 2.5 mg/dL (0.2-2.0); BUN/CREATININE RATIO 11.25; CALCIUM SERUM 8.5 mg/dL (8.4-10.2); CREATININE SERUM 0.8 mg/dL (0.6-1.4); GLOM FILT RATE Estimated 86.6 mL/min (>60); POTASSIUM 4.4 mmol/L (3.5-5.1); PROTEIN TOTAL SERUM 6.7 g/dL (6.0-8.3)
[2017-02-15 10:41] LABS: BODY FLUID SOURCE ASCITES
[2017-02-15 10:42] LABS: BF TOTAL NUCLEATED CELL COUNT 53 CMM (0-100); BODY FLUID APPEARANCE CLEAR
[2017-02-15 10:43] LABS: BODY FLUID RBC <10000 CMM
[2017-02-17] MEDS ORDERED: THERA-M CAPLET1 EAC1 PO (11:41)
[2017-02-17] MEDS ORDERED: ALDACTONE100 MG PO (11:43)
[2017-02-17] MEDS ORDERED: LASIX PO (11:44)
[2017-02-17] MEDS ORDERED: THIAMINE HCL100 M1 PO (11:44)
== END 2017-02-17 14:38 | DRG 433 ==
LOC: CED 14:10 → C2A 20:15 → CEDOF 20:15 → C5B 20:15 → CED 20:15 → C5B 21:05 → CEDOF 21:05 → CED 21:05 → C5B 23:44 → CEDOF 23:44 → C5B 02-14 07:33 → C2A 02-15 15:25 → CED 02-17 13:54 → C5B 02-17 13:54 → CEDOF 02-17 13:54 → C2A 02-17 14:38 → C5B 02-17 14:38
PROVIDERS: Emergency Medicine; Family Medicine
PROC: 0W9G3ZZ Drainage of Peritoneal Cavity, Percutaneous Approach (ICD-10-PCS; 2017-02-15)
PROC: 0W9G3ZZ Drainage of Peritoneal Cavity, Percutaneous Approach (ICD-10-PCS; principal; 2017-02-16)
DX: K70.31 Alcoholic cirrhosis of liver with ascites (principal); D61.818 Other pancytopenia; D68.9 Coagulation defect, unspecified; E46 Unspecified protein-calorie malnutrition; D69.6 Thrombocytopenia, unspecified; E88.09 Other disorders of plasma-protein metabolism, not elsewhere classified; F10.10 Alcohol abuse, uncomplicated; Y90.3 Blood alcohol level of 60-79 mg/100 ml; F32.9 Major depressive disorder, single episode, unspecified; F41.9 Anxiety disorder, unspecified; Z68.29 Body mass index [BMI] 29.0-29.9, adult; Z51.5 Encounter for palliative care; K80.20 Calculus of gallbladder without cholecystitis without obstruction; I10 Essential (primary) hypertension; Z98.51 Tubal ligation status; Z90.722 Acquired absence of ovaries, bilateral; Z88.2 Allergy status to sulfonamides; Z83.79 Family history of other diseases of the digestive system
CPT/HCPCS: 36415; 71010; 74177; 76705; 80048; 80053; 80076; 81003; 82042; 82140; 83690; 83880; 85025; 85027; 85610; 85730; 87070; 87205; 88108; 88305; 89051; 96365; 96375; 96376; 99285; C9113; G0480; J0696; J2270; J2405; Q9967

== ENCOUNTER 2017-03-08 16:19 | Observation (INO) | payer OTHER ==
[~2017-03-08] VITALS: Ht 170.2 cm; Wt 95.5 kg
--- NOTE | ~2017-03-08 | XA170 ---
[facility] A Service of [facility] RADIOLOGY TEXT RESULTS PATIENT: TEO WEN LOCATION: [facility] 323- : [birth year] UNIT #: [id number] AGE: [address]: Hilario Crawley MD SEX: F ORDER DR: [id number] [address] [place], [place] [address] [id number] I MR#: [id number] Acc #: [id number] NAME: TEO WEN : 1965 SEX: F STUDY DATE/TIME: 03/09/2017 10:59 UNIT: A [facility] ROOM: Critical [facility] hospital STUDY DESCRIPTION: XA Paracentesis W Image Attending Physician: Hilario Crawley M.D. Referring Physician: Primary Care Physician No Ordering Physician: Domenico Rosenberg M.D. Primary Care Physician: Primary Care Physician No MEDICAL IMAGING REPORT This report is preliminary unless electronic signature is present EXAM Ultrasound-guided paracentesis INDICATION Recurrent ascites. Risks, benefits and alternatives to the procedure discussed with the patient. Informed consent was obtained. In the procedure room a time-out was performed confirming correct patient and procedure. All elements of maximum sterile barrier technique utilized according to guidelines appropriate for the procedure. TECHNIQUE/FINDINGS Ultrasound of the right side of the abdomen was performed demonstrating a large amount of ascites. The overlying skin was prepped and draped in the usual sterile fashion. 1% lidocaine utilized to anesthetize the skin and underlying subcutaneous tissues. Next, under ultrasound guidance a 5-[place] Yueh catheter was inserted into the peritoneal space of the right lower quadrant. 8.9 liters of fluid was removed and samples sent to the lab. The needle was removed and a sterile dressing was applied. No immediate complications. IMPRESSION Technically successful ultrasound-guided paracentesis. Dictated by... Nahum Marino M.D. THIS IS AN ELECTRONICALLY VERIFIED REPORT Nahum Marino M.D. at 03/11/2017 7:[address] [facility] A Service [facility] RADIOLOGY TEXT RESULTS PATIENT: TEO WEN LOCATION: [facility] 323-01 : [birth year] UNIT #: [id number] AGE: [address]: Hilario Crawley MD SEX: F ORDER DR: PAPI/mendez TD: 03/09/2017 21:59 JOB #: [id number] MEDICAL IMAGING REPORT Page 1 of 1 COPY
--- NOTE | ~2017-03-08 | DS ---
Unit #: [id number] #: [id number] Patient: TEO WEN [id number] [address] [place], [place] [address] [id number] I MR#: [id number] NAME: TEO WEN ROOM: 323 Age: 51 Sex: F Admission Date: 03/08/2017 : 1965 Discharge Date: 03/09/2017 Attending Physician: Hilario Crawley M.D. Referring Physician: No Primary Care Physician Primary Care Physician: No Primary Care Physician DISCHARGE SUMMARY PRIMARY DIAGNOSIS Abdominal pain. SECONDARY DIAGNOSES 1. Cirrhosis. 2. Recurrent ascites. 3. Pancytopenia. 4. Depression/anxiety. 5. Alcohol abuse, ongoing. 6. Inability to get opiates from hospice due to multiple inaccurate pill counts, which appears likely to be due to pills being removed by the . HOSPITAL COURSE Patient was placed on observation status for abdominal paracentesis. She underwent paracentesis with 8 liters removed. This resulted in some partial improvement in her abdominal pain, but not complete. The patient's abdomen is soft and, clinically, her pain should be more improved than she describes. I discussed the case with the physician at hospice. He notes that they have recommended to the patient that she change her living situation so that she would be staying with her parents in which case the hospice organization would begin to be able to provide opiates in what they would feel would be a more safe manner and family and patient have refused that. Additionally, at her recent hospitalization earlier this month, inpatient hospice was recommended, but patient refused that. There does appear to be a component of drug-seeking for opiate medications, although it is unclear whether this is seeking for the benefit of the patient or the benefit of the patient's . Unfortunately, with the patient's history of multiple inaccurate drug counts through hospice, we are not going to be able to provide her any opiates at discharge. Hospice will continue to manage this issue and continue to advise the patient on alternatives as they are available outpatient. At current, patient does not meet criteria to remain in the hospital and, with her history, we are limited on what we can provide. I would recommend a repeat paracentesis for this patient early next week, which can be set up outpatient by the hospice organization. DISCHARGE DISPOSITION To home. DISCHARGE STATUS Terminal. DISCHARGE ACTIVITY Unit #: [id number] #: [id number] Patient: TEO WEN With assistance or wheeled walker at all times. DISCHARGE DIET Unrestricted. DISCHARGE MEDICATIONS Unchanged from admission. DISCHARGE FOLLOWUP With hospice in 1-5 days. Dictated by... Hilario Crawley M.D. NALDO/nicky TD: 03/10/2017 06:59 JOB #: [id number] DISCHARGE SUMMARY Page 1 of 1 X Hilario Crawley MD X DISCHARGE SUMMARY
--- NOTE | ~2017-03-08 | HP ---
Unit #: [id number] #: [id number] Patient: TEO WEN [id number] [address] [address] [id number] I MR#: [id number] NAME: TEO WEN ROOM: 88603 Age: 51 Sex: F Admission Date: 03/08/2017 : 1965 Attending Physician: Michael Rosenberg M.D. HISTORY AND PHYSICAL CHIEF COMPLAINT Abdominal pain. HISTORY OF PRESENT ILLNESS The patient is a 51-year-old female with a history of cirrhosis secondary to alcohol abuse with recurrent ascites, thrombocytopenia, and continued alcohol abuse, who presented to the emergency room from home per hospice R.N. for worsening abdominal pain. The patient was recently discharged home on February 17 with home hospice with a plan for weekly abdominal paracentesis. The patient is scheduled for abdominal paracentesis on . However, the patient stated that patient cannot wait until for the paracentesis and presented to the emergency room. The patient had a few tall beers a few days ago. The patient also complains of shortness of breath with abdominal swelling. Denies any nausea and vomiting and denies any fever. PAST MEDICAL HISTORY 1. Cirrhosis. 2. Recurrent ascites with pancytopenia. 3. Depression and anxiety. PAST SURGICAL HISTORY 1. Tubal ligation. 2. Oophorectomy. 3. Colonoscopy. SOCIAL HISTORY The patient lives with her . She drinks tall beers (2) few beers. The patient's code status is Do Not Resuscitate from [facility]. Denies any tobacco or any illicit drug abuse. FAMILY HISTORY Notable for dad having cirrhosis. ALLERGIES Sulfa. HOME MEDICATIONS 1. Seroquel. 2. Zofran. 3. Lactulose. 4. Effexor. 5. Aldactone. 6. Lasix. Unit #: [id number] #: [id number] Patient: TOE WEN 7. Thiamine. REVIEW OF SYSTEMS Positive for abdominal pain, positive for shortness of breath, positive for abdominal thrill, and positive for fever up to 100.2. All other systems have been reviewed and are none. PHYSICAL EXAMINATION GENERAL: Patient is lying in bed not in acute distress. VITAL SIGNS: Temperature 100.2, pulse 41, respiratory rate 20, blood pressure 144/94, and saturating 100% on room air. HEENT: Head atraumatic, normocephalic. Pupils equal, round, and reactive to light and accommodation. Extraocular movements are intact. Dry mucous membranes. NECK: Supple. LUNGS: Decreased air entry at the bases. HEART: Regular rate and rhythm. ABDOMEN: Soft. Positive for tenderness and markedly distended with shifting waves present. EXTREMITIES: Positive for pedal edema. NEUROLOGIC: Alert, awake, and oriented. No gross focal motor deficit. PSYCHIATRIC: Mood and affect are appropriate. DIAGNOSTIC STUDIES LABORATORY: Ammonia level is less than 9. Lactic acid is 2. Sodium 132, potassium 4.3, chloride 97, bicarb 25, glucose 119, BUN 12, creatinine 1, AST 37, ALT 19, alkaline phosphatase 81, total bilirubin 2.6, and albumin 3.2. Amylase 27 and lipase 37. WBC 4.7, hemoglobin 12.7, hematocrit 36.8, and platelets 90,000. Beta hCG is negative. Urinalysis shows trace leukocyte esterase. ASSESSMENT 1. Abdominal pain. 2. Cirrhosis. 3. Alcohol abuse. PLAN Admit the patient to observation with telemetry. Continue pain control with Dilaudid and schedule for abdominal paracentesis in the morning. Continue home medications of Spironolactone, Lasix, lactulose, Effexor, Zofran, and Zoloft. Make arrangements with the hospice nurse for either inpatient hospice or weekly scheduled paracentesis as patient is unable to wait for longer periods without abdominal paracentesis. Further recommendations will follow. Dictated by Andres Bazzi TD: 03/08/2017 21:49 JOB #: [id number] Unit #: [id number] #: [id number] Patient: BETTYE,TEO HISTORY AND PHYSICAL Page 1 of 1 X MICHAEL ROSENBERG MD X HISTORY AND PHYSICAL
[~2017-03-08 16:19] MED LIST changes: +EFFEXOR75 M3 PO; +LACTULOSE20 GM/30 M PO; +QUETIAPINE FUM100 MG PO; +SPIRONOLACTONE50 MG PO; +THERA-M CAPLET1 EAC1 PO; +ZOFRAN8 MG PO
[2017-03-08] MEDS ORDERED: PATIENT'S PHARMACY (17:38)
[2017-03-08] MEDS ORDERED: EFFEXOR PO (17:39)
[2017-03-08] MEDS ORDERED: SPIRONOLACTONE50 MG PO (17:39)
[2017-03-08] MEDS ORDERED: LACTULOSE10 GM/15 M PO (17:39)
[2017-03-08] MEDS ORDERED: ZOFRAN PO (17:39)
[2017-03-08] MEDS ORDERED: LASIX20 MG PO (17:39)
[2017-03-08] MEDS ORDERED: ZOLOFT PO (17:40)
[2017-03-08 17:53] LABS: BASOPHIL% 0.3 % (0-2.5); EOSINOPHIL% 0.3 % (0.0-7.0); HEMATOCRIT 36.8 % (35.0-45.0); HEMOGLOBIN 12.7 gm/dL (12.0-16.0); LYMPHOCYTE# 0.3 X10e3 (1.0-3.5); LYMPHOCYTE% 6.8 % (17.0-45.0); MEAN CELL VOLUME 101.7 FL (83-96); MEAN CORPUSCULAR HGB CONC 34.4 g/dL (30-36); MEAN PLATELET VOLUME 8.4 FL (6.5-11.5); MONOCYTE# 0.3 X10e3 (0-1.0); NEUTROPHIL% 86.6 % (40-75); RED BLOOD COUNT 3.62 X10e (3.90-5.30); RED CELL DISTRIBUTION WIDTH 16.9 % (11.0-15.5); WHITE BLOOD COUNT 4.7 X10e3 (4.0-10.5)
[2017-03-08 18:11] LABS: ALBUMIN SERUM 3.2 g/dL (3.5-5.0); BILIRUBIN, DIRECT 0.7 mg/dL (0.0-0.2); BILIRUBIN,INDIRECT 1.9 mg/dL (0.0-0.9); BILIRUBIN,TOTAL 2.6 mg/dL (0.2-2.0); CALCIUM SERUM 8.9 mg/dL (8.4-10.2); GLOM FILT RATE Estimated 66.1 mL/min (>60); POTASSIUM 4.3 mmol/L (3.5-5.1)
[2017-03-08 18:20] LABS: DIFF IND NO; PLATELET COUNT 90 X10e3 (140-420)
[2017-03-08 18:23] LABS: URINE SOURCE CLEAN CATCH
[2017-03-08 18:31] LABS: URINE APPEARANCE CLEAR; URINE BILIRUBIN NEG (NEG); URINE BLOOD NEG (NEG); URINE COLOR YELLOW; URINE GLUCOSE NEG (NEG); URINE KETONE NEG (NEG); URINE LEUKOCYTE ESTERASE TRACE (NEG); URINE NITRATE NEG (NEG); URINE PROTEIN NEG (NEG); URINE SPECIFIC GRAVITY 1.011 (1.003-1.035); URINE UROBILINOGEN 0.2 MG/DL (NEG)
[2017-03-08 18:37] LABS: CULTURE INDICATED? NO; U HYALINE CASTS AUWI 0-2 /[LPF]; URINE BACTERIA AUWI NEG (NEGATIVE); URINE SQUAMOUS EPITHELIAL CELL NONE SEEN /[HPF]
[2017-03-09 06:36] LABS: BASOPHIL# 0.1 X10e3 (0-0.3); BASOPHIL% 1.1 % (0-2.5); EOSINOPHIL% 0.2 % (0.0-7.0); HEMATOCRIT 37.8 % (35.0-45.0); HEMOGLOBIN 12.9 gm/dL (12.0-16.0); LYMPHOCYTE# 0.6 X10e3 (1.0-3.5); LYMPHOCYTE% 8.1 % (17.0-45.0); MEAN CELL VOLUME 102.6 FL (83-96); MEAN CORPUSCULAR HEMOGLOBIN 34.9 PG (28-34); MEAN CORPUSCULAR HGB CONC 34.1 g/dL (30-36); MEAN PLATELET VOLUME 8.2 FL (6.5-11.5); MONOCYTE# 0.7 X10e3 (0-1.0); MONOCYTE% 9.9 % (3.0-12.0); NEUTROPHIL# 5.7 X10e3 (1.5-7.1); NEUTROPHIL% 80.7 % (40-75); PLATELET COUNT 104 X10e3 (140-420); RED BLOOD COUNT 3.68 X10e (3.90-5.30); RED CELL DISTRIBUTION WIDTH 16.9 % (11.0-15.5)
[2017-03-09 06:38] LABS: DIFF IND NO
[2017-03-09 08:41] LABS: BUN/CREATININE RATIO 12.72; CALCIUM SERUM 8.5 mg/dL (8.4-10.2); CREATININE SERUM 1.1 mg/dL (0.6-1.4); GLOM FILT RATE Estimated 58.9 mL/min (>60)
[2017-03-09] MEDS ORDERED: LASIX PO (15:07)
== END 2017-03-09 15:47 | disposition home or self-care (01) | DRG 433 ==
LOC: CED 16:19 → CEDOF 19:00 → C3A PCU 19:00 → CED 19:05 → CEDOF 19:05 → C3A PCU 03-09 00:03
PROVIDERS: Emergency Medicine; Internal Medicine
DX: K70.31 Alcoholic cirrhosis of liver with ascites (principal); R10.11 Right upper quadrant pain; D61.818 Other pancytopenia; F41.9 Anxiety disorder, unspecified; F32.9 Major depressive disorder, single episode, unspecified; Z88.2 Allergy status to sulfonamides; Z79.899 Other long term (current) drug therapy; Z98.51 Tubal ligation status; Z90.721 Acquired absence of ovaries, unilateral; Z98.890 Other specified postprocedural states
CPT/HCPCS: 36415; 80048; 80076; 81003; 82140; 82150; 83605; 83690; 84703; 85025; 87040; 94760; 96372; 96374; 96375; 99285; G0378; J1170; J2270; J2405

== ENCOUNTER → 2017-03-17 | Outpatient (CLI) | payer OTHER ==
[~2017-03-17] MED LIST changes: +EFFEXOR PO; +LACTULOSE10 GM/15 M PO; +PATIENT'S PHARMACY; +ZOFRAN PO; +ZOLOFT PO
--- NOTE | ~2017-03-17 | XA170 ---
[facility] A Service of [facility] RADIOLOGY TEXT RESULTS PATIENT: TEO WEN LOCATION: [facility] : [birth year] UNIT #: [id number] AGE: [address]: FRANCHESCA KEATING SEX: F ORDER DR: [id number] [facility] [address] [place], [place] [address] [id number] O MR#: [id number] Acc #: [id number] NAME: TEO WEN : 1965 SEX: F STUDY DATE/TIME: 03/17/2017 9:16 UNIT: [facility] ROOM: STUDY DESCRIPTION: XA Paracentesis W Image Attending Physician: Franchesca Keating Referring Physician: Franchesca Keating Ordering Physician: Staff Doctor Not On Primary Care Physician: No Primary Care Physician MEDICAL IMAGING REPORT This report is preliminary unless electronic signature is present EXAM Ultrasound guided paracentesis 03/17/2017. HISTORY Recurrent ascites. PROCEDURE Informed consent was obtained from the patient. A skin site was selected with ultrasound guidance and marked, sterilely prepped and draped and locally anesthetized. A Direct Sitters needle catheter was used for paracentesis and 11.2 L of fluid were removed. There were no complications and the patient tolerated the procedure well. IMPRESSION 1. Successful ultrasound-guided right lower quadrant paracentesis with removal of 11.2 liters of fluid without complication. 2. Single ultrasound spot image was preserved. Dictated by... Farzad Rees M.D. THIS IS AN ELECTRONICALLY VERIFIED REPORT Farzad Rees M.D. at 03/18/2017 4:05 PM TEV/beverly TD: 03/17/2017 15:10 JOB #: [id number] MEDICAL IMAGING REPORT Page 1 of 1 COPY
[2017-03-17 09:09] LABS: HEMATOCRIT 33.9 % (35.0-45.0); HEMOGLOBIN 11.7 gm/dL (12.0-16.0); MEAN CELL VOLUME 98.8 FL (83-96); MEAN CORPUSCULAR HEMOGLOBIN 34.3 PG (28-34); MEAN CORPUSCULAR HGB CONC 34.7 g/dL (30-36); MEAN PLATELET VOLUME 7.4 FL (6.5-11.5); RED BLOOD COUNT 3.43 X10e (3.90-5.30); RED CELL DISTRIBUTION WIDTH 15.6 % (11.0-15.5); WHITE BLOOD COUNT 4.8 X10e3 (4.0-10.5)
[2017-03-17 09:21] LABS: INR 1.2; PARTIAL THROMBOPLASTIN TIME 29.6 SECONDS (23.5-31.3); PROTHROMBIN TIME (PATIENT) 12.6 SECONDS (10.0-11.7)
== END | disposition home or self-care (01) ==
LOC: CIVR 08:00
PROVIDERS: Nurse Practitioner Family
DX: K70.31 Alcoholic cirrhosis of liver with ascites (principal); F41.9 Anxiety disorder, unspecified; D50.9 Iron deficiency anemia, unspecified; T14.91 Suicide attempt; E87.6 Hypokalemia; Z88.1 Allergy status to other antibiotic agents
CPT/HCPCS: 36415; 85027; 85610; 85730